=== PATIENT | female | born 1950 | race Caucasian/White ===

== ENCOUNTER → 2016-07-18 18:39 | Outpatient (CLI) | payer MEDICARE, OTHER | END | disposition home or self-care (01) | LOC: D.MAMMO 07-10 09:00 | DX: Z12.31 Encounter for screening mammogram for malignant neoplasm of breast (principal) ==

== ENCOUNTER 2017-04-04 05:08 | Day surgery (SDC) | payer MEDICARE, OTHER ==
[2017-04-03 13:39] LABS: BASOPHILS 0.7 % (0-2); EOSINOPHILS 4.7 % (0-7); HEMATOCRIT 37.6 % (36.0-48.0); HEMOGLOBIN 12.2 g/dL (12-16); IMMATURE GRANULOCYTES 0.4 % (0-5); LYMPHOCYTES 29.2 % (15-50); MCH 29.6 pg (26.0-34.0); MCHC 32.4 g/dL (31.0-37.0); MCV 91.3 fL (80.0-100.0); MEAN PLATELET VOLUME 10.4 fL (7.4-10.4); MONOCYTES 6.5 % (2-11); NEUTROPHILS 58.5 % (40-80); PLATELET COUNT 301 10x3/uL (130-400); RBC 4.12 10x6/uL (4.00-5.40); RDW 16.6 % (11.5-14.5); WBC 7.4 10x3/uL (4.8-10.8)
[2017-04-03 13:51] LABS: CALC OSMOLALITY 277 mosm/kg (275-300); CALCIUM 9.6 mg/dL (8.5-10.1); CHLORIDE - SERUM 99 mmol/L (98-107); CREATININE - SERUM 0.8 mg/dL (0.6-1.3); GLUCOSE 160 mg/dL (74-106); SODIUM 137 mmol/L (136-145); UREA NITROGEN 16 mg/dL (7-18); eGFR NON AFRICAN AMERICAN 76 mL/min (90-120)
[~2017-04-04] VITALS: Ht 170.2 cm; Wt 74.8 kg
[~2017-04-04 05:08] MED LIST: CHRONULAC30 ML PO; GLUCOPHAGE500 MG PO
[2017-04-04 06:30] VITALS: BP 135/78; Ht 170.2 cm; Wt 74.8 kg
[2017-04-04] MEDS ORDERED: REPREXAIN 10-21 EACH PO (08:50)
[2017-04-04 09:45] LABS: ALBUMIN 2.9 g/dL (3.4-5.0); BILIRUBIN - DIRECT 9.4 mg/dL (0.00-0.30); BILIRUBIN - INDIRECT 1.44 mg/dL (0.00-1.00); BILIRUBIN - TOTAL 10.84 mg/dL (0.2-1.3)
--- NOTE | 2017-04-04 13:34 | NUR ---
1200--PT VOIDS, IV DC'D. GINO RN 1210--DISCHARGE INSTRUCTIONS GIVEN, PT VERBALIZES UNDERSTANDING. PT OFF UNIT VIA WC. GINO CANAS
--- NOTE | 2017-04-08 12:19 | OP ---
PATIENT NAME: CIARAN MENDEZ MEDICAL RECORD: [id number] :52 LOCATION:D[facility] ADMISSION DATE: SURGEON: CHINTAN QUIÑONES MD DATE OF OPERATION: 04/04/2017 PREOPERATIVE DIAGNOSES: 1. Gallstones. 2. Steatosis of the liver. 3. Jaundice. 4. Diabetes mellitus. PREOPERATIVE DIAGNOSES: 1. Gallstones. 2. Steatosis of the liver. 3. Jaundice. 4. Diabetes mellitus. PROCEDURES: 1. Laparoscopic cholecystectomy. 2. Intraoperative cholangiogram with immediate fluoroscopic interpretation. 3. Johnnie-Cut Liver biopsy. SURGEON: Chintan Quiñones MD REPORT OF PROCEDURE: The patient's abdomen was prepped and draped in sterile fashion. A cutdown was made on the superior aspect of the umbilicus, 0 Vicryls were placed on the fascia bilaterally and the fascia was incised with 15-blade. I then bluntly entered the peritoneal cavity and placed a 12-mm Domingo port. Under direct visualization, a 5 mm trocar was placed in the epigastrium and 2 more 5 mm trocars were placed in the right subcostal region. The gallbladder was grasped and elevated. There were some acute inflammatory changes present. We were able to dissect down to the patient's cystic duct. This duct was mildly dilated. We were able to find the cystic artery and this was clipped proximally and distally and ligated in standard fashion. The cystic duct was clamped proximally and a small opening was made within it. We were able to place a cholangiocatheter into the cystic duct. At this point, fluoroscopy was brought in and we performed an intraoperative cholangiogram. There was brisk flow of the contrast through the cystic duct and out through the ampulla into the duodenum. We eventually got some backfilling of the common bile duct up into the hepatic ducts. These ducts were all markedly dilated, but there were no distinct strictures or masses noted. There were no free floating stones in the common bile duct to account for that dilatation. At this point, the cholangiocatheter was removed. The cystic duct was clipped twice distally and ligated in standard fashion. The gallbladder was then taken off the liver bed using electrocautery and placed into the right upper quadrant. Any bleeding from the liver bed was treated with electrocautery. At this point, we brought in a Johnnie-Cut biopsy tool. We went through the abdominal wall and got 5 cores of tissue from the right lobe of the liver. Any bleeding from the liver was then treated with electrocautery. At this point, the ports and insufflation were then removed and the gallbladder was taken out through the umbilicus. The umbilical fascia was closed with interrupted 0 Vicryls times 3. The wounds were irrigated out with normal saline and then infused with 10 mL of 0.25% Marcaine with epinephrine. The skin incisions were all closed with subcutaneous 5-0 Monocryl and dressed appropriately. OPERATIVE REPORT [id number] CIARAN MENDEZ COMPLICATIONS: None. CONDITION: Stable. ANESTHESIA: General endotracheal and local. BLOOD LOSS: Minimal. TRANSINT:[id number] Voice Confirmation ID: [id number] DOCUMENT ID: [id number] CHINTAN QUIÑONES MD at 1219 CC: DINESH OLMOS DO [id number] DICTATION DATE: 04/04/17 0856 DOWEL PIN MAN: 04/04/17 [id number] [facility] 04/04/17 [id number] [place] [address]
== END 2017-04-04 12:10 | disposition home or self-care (01) ==
LOC: D.OPS 05:08 → D.PAN 11:30 → D.OPS 12:10
PROVIDERS: Surgery
DX: K80.20 Calculus of gallbladder without cholecystitis without obstruction (principal); K76.0 Fatty (change of) liver, not elsewhere classified; R17 Unspecified jaundice; E11.9 Type 2 diabetes mellitus without complications; Z01.812 Encounter for preprocedural laboratory examination

== ENCOUNTER → 2017-05-02 08:08 | Outpatient (CLI) | payer MEDICARE, OTHER ==
[2017-04-04 06:30] VITALS: BMI 25.9
[~2017-05-02 08:08] MED LIST changes: +REPREXAIN 10-21 EACH PO
== END | disposition home or self-care (01) ==
LOC: D.MRI 08:08
DX: C25.9 Malignant neoplasm of pancreas, unspecified (principal)

== ENCOUNTER 2017-06-25 10:05 | Inpatient (IN) | payer MEDICARE, OTHER ==
[~2017-06-25] VITALS: Ht 170.2 cm; Wt 79.2 kg
--- NOTE | ~2017-06-25 | EC ---
PATIENT:CIARAN MENDEZ DATE OF SERVICE: 06/25/17 SEX: F MEDICAL RECORD: [id number] DATE OF : 52 LOCATION:[place] [address] AGE OF PATIENT: 67 ADMISSION DATE: 06/25/17 REFERRING PHYSICIAN: INTERPRETING PHYSICIAN: DINESH RUTLEDGE MD ECHOCARDIOGRAM REPORT ECHO CHARGES 4 ECHO COMPLETE CLINICAL DIAGNOSIS: TACHYCARDIA ECHOCARDIOGRAPHIC MEASUREMENTS (adult normal given) AC root (d.<3.7cm) 3.1 cm LV Septum d (<1.2 cm> 1.2 cm Valve Excursion 1.7 cm LV Septum (systole) 1.6 cm Left Atria (s.<4.0cm> 3.0 cm LVPW d(<1.2cm) 1.2 cm RV (d.<2.3cm) 3.2 cm LVPW (sytole) 1.7 cm LV diastole(<5.6CM) 3.4 cm MV E-F(>70mm/sec) cm LV systole 2.1 cm LVOT Diameter 1.7 cm MV exc.(>10mm) 1.6 cm Est.ejection fraction (50-75%) % Pericardial Effusion N DOPPLER: LVIT cm/sec A 79.0 cm/sec E 94.0 cm/sec LA cm/sec RVSP 17 mmHg LVOT 121 cm/sec AOP1/2T m/s Asc. Ao 143 cm/sec RVOT 85 cm/sec RA cm/sec PA 118 cm/sec AV Gradient Peak 8.19 mmHg AV Mean 4.29 mmHg AV Area 2.0 cm MV Gradient Peak 2.87 mmHg MV Mean 1.52 mmHg MV Area cm COMMENTS: Reference Librarian: Drake BECERRA Prison Keeper: 4 Dr. Rutledge TAPE# PACS DATE OF SERVICE: 06/27/2017 PROCEDURE: Transthoracic echocardiogram. FINDINGS: 1. Left ventricle is hyperdynamic. Ejection fraction 65%. The patient has evidence of mild hypertensive heart disease with left ventricular hypertrophy. Inflow characteristics; however, are normal. The patient has normal left atrium, normal aortic valve, normal mitral valve. 2. Normal tricuspid valve with normal right ventricular systolic pressures. ECHOCARDIOGRAM REPORT [id number] CIARAN MENDEZ Normal right atrium, normal right ventricle. CONCLUSION: Overall, this is a normal echocardiogram for age with the exception of mild left ventricular hypertrophy. TRANSINT:[id number] Voice Confirmation ID: [id number] DOCUMENT ID: [id number] DINESH RUTLEDGE MD at 1214 CC: [id number] DICTATION DATE: 06/27/172100 MANAGER PERIOPERATIVE: 06/28/17 0055 ADM IN [facility] [address] [place] [id number]
--- NOTE | ~2017-06-25 | OP ---
PATIENT NAME: CIARAN MENDEZ MEDICAL RECORD: [id number] :52 LOCATION:D.M2 D.2113 ADMISSION DATE:06/25/17 SURGEON: CHINTAN QUIÑONES MD DATE OF OPERATION: 06/30/2017 PREOPERATIVE DIAGNOSES: 1. Metastatic pancreatic cancer. 2. Partial duodenal obstruction. 3. Upper gastrointestinal bleed. 4. Anemia secondary to gastrointestinal hemorrhage. POSTOPERATIVE DIAGNOSES: 1. Metastatic pancreatic cancer. 2. Partial duodenal obstruction. 3. Upper gastrointestinal bleed. 4. Anemia secondary to gastrointestinal hemorrhage. PROCEDURE: 1. Left subclavian vein PowerPort placement. 2. Fluoroscopic interpretation. 3. Laparoscopic gastrojejunostomy. SURGEON: Chintan Quiñones MD REPORT OF PROCEDURE: The patient's abdomen and left chest were all prepped and draped in sterile fashion. A needle was used to cannulate the left subclavian vein and a guidewire was advanced with ease. Fluoro was used to note that the wire was in good position in the venous system. A subcutaneous pouch was made over the left superior lateral chest. The catheter was tunneled between this pouch and the wire exit site. The port was then sutured to the pectoral fascia using interrupted 2-0 Prolene. The catheter was cut with a beveled tip at 23-cm. The dilator trocar device was placed over the wire and the wire and dilator were removed. The catheter tip was noted to be in good position in the superior vena cava. The catheter aspirated nonpulsatile dark blood and flushed easily with heparinized saline. The subcutaneous tissues were reapproximated with interrupted 3-0 Vicryl and the skin was closed with running subcutaneous 5-0 Monocryl. This was dressed appropriately and then a Veress needle was inserted in the left upper quadrant of the abdomen. After insufflation was obtained, a 5-mm trocar was inserted in the midline just above the umbilicus. I could see the Veress needle and there was no sign of any injury to bowel or surrounding structures. The Veress needle was removed. A 12-mm trocar was placed in the left lateral abdomen and a 5-mm trocar was placed in the midepigastric region. We found the ligament of Treitz and followed the small bowel back about 20 cm. The small bowel was brought up to the stomach over the transverse colon and sutured into place with 0 Ti-Cron on each side on the body and antrum of the stomach. A small openings were made in the stomach and the small bowel and 60 green load Endo-HELEN stapler was used to make a long gastrojejunostomy. I inspected the opening and saw there was no sign of any active bleeding. We then closed the enterotomy and gastrotomy site using interrupted 0 Polydek times 3. The tissue appeared to be under no tension and there was no sign of any active bleeding. At this point, the ports and insufflation were then removed. There was a lot of bleeding from the supraumbilical port site, so the skin incision was opened up and I was able to oversew an area of bleeding from the muscle tissue. This discontinued any bleeding at that site. We then closed the fascia and the 12-mm trocar site OPERATIVE REPORT [id number] VANESSA,CIARAN SIERRA fascia using an interrupted 0 Vicryl. The subcutaneous tissues were then infused with a total of 10 mL of 0.25% Marcaine with epinephrine and then the skin incisions were closed with subcutaneous 5-0 Monocryl. COMPLICATIONS: None. CONDITION: Stable. ANESTHESIA: General endotracheal and local. BLOOD LOSS: Minimal. TRANSINT:[id number] Voice Confirmation ID: [id number] DOCUMENT ID: [id number] CHINTAN QUIÑONES MD at 1319 CC: LAURA CHAPMAN MD [id number] DICTATION DATE: 06/30/17 1429 RAILWAY STATION MANAGER: 06/30/17 1535 ADM IN [place] [id number] [place] [address]
[2017-06-25 11:07] LABS: LYMPHOCYTES 27.8 % (15-50); MCH 28.6 pg (26.0-34.0); MCHC 32.4 g/dL (31.0-37.0); MCV 88.2 fL (80.0-100.0); MEAN PLATELET VOLUME 8.3 fL (7.4-10.4); NEUTROPHILS 64.6 % (40-80); WBC 6.1 10x3/uL (4.8-10.8)
[2017-06-25 11:21] LABS: ALBUMIN 2.6 g/dL (3.4-5.0); ALKALINE PHOSPHATASE 482 U/L (46-116); ALT (SGPT) 64 U/L (10-68); CALC OSMOLALITY 283 mosm/kg (275-300); CALCIUM 8.1 mg/dL (8.5-10.1); CARBON DIOXIDE 28.5 mmol/L (21.0-32.0); CHLORIDE - SERUM 100 mmol/L (98-107); CREATININE - SERUM 0.8 mg/dL (0.6-1.3); GLUCOSE 252 mg/dL (74-106); POTASSIUM - SERUM 4.1 mmol/L (3.5-5.1); PROTEIN - SERUM 6.2 g/dL (6.4-8.2); SODIUM 135 mmol/L (136-145); UREA NITROGEN 26 mg/dL (7-18); eGFR NON AFRICAN AMERICAN 76 mL/min (90-120)
[2017-06-25 11:22] LABS: HEMATOCRIT 14.2 % (36.0-48.0); HEMOGLOBIN 4.6 g/dL (12-16); PLATELET COUNT 194 10x3/uL (130-400); RBC 1.61 10x6/uL (4.00-5.40)
[2017-06-25 12:16] LABS: INR 1.46 (0.85-1.17); PROTIME 17.3 SECONDS (11.6-15.0)
[2017-06-25 20:00] VITALS: BP 137/73
[2017-06-25 21:00] VITALS: BP 101/52
[2017-06-25 22:00] VITALS: BP 101/54
[2017-06-25 22:07] LABS: BASOPHILS 0.3 % (0-2); EOSINOPHILS 1.4 % (0-7); IMMATURE GRANULOCYTES 3.1 % (0-5); LYMPHOCYTES 33.1 % (15-50); MCH 29.5 pg (26.0-34.0); MCHC 34.7 g/dL (31.0-37.0); MONOCYTES 9.3 % (2-11); NEUTROPHILS 52.8 % (40-80); RBC 2.07 10x6/uL (4.00-5.40); RDW 14.4 % (11.5-14.5); WBC 7.1 10x3/uL (4.8-10.8)
[2017-06-25 22:09] LABS: HEMATOCRIT 17.6 % (36.0-48.0); HEMOGLOBIN 6.1 g/dL (12-16); PLATELET COUNT 91 10x3/uL (130-400)
[2017-06-25 22:35] LABS: ALBUMIN 2.4 g/dL (3.4-5.0); ALKALINE PHOSPHATASE 333 U/L (46-116); ALT (SGPT) 49 U/L (10-68); BILIRUBIN - TOTAL 1.25 mg/dL (0.2-1.3); CALC OSMOLALITY 276 mosm/kg (275-300); CARBON DIOXIDE 23.4 mmol/L (21.0-32.0); CHLORIDE - SERUM 102 mmol/L (98-107); CREATININE - SERUM 0.7 mg/dL (0.6-1.3); POTASSIUM - SERUM 3.9 mmol/L (3.5-5.1); PROTEIN - SERUM 5.5 g/dL (6.4-8.2); SODIUM 136 mmol/L (136-145); UREA NITROGEN 20 mg/dL (7-18); eGFR NON AFRICAN AMERICAN 89 mL/min (90-120)
[2017-06-25 22:40] LABS: GLUCOSE 139 mg/dL (74-106)
[2017-06-25 22:54] LABS: PLATELET ESTIMATE DECREASED
[2017-06-25 23:00] VITALS: BP 121/63
[2017-06-26] VITALS (24 sets, daily range): BP systolic 122–147; BP diastolic 63–81; Ht 170.2 cm; Wt 79.2 kg
[2017-06-26 05:11] LABS: BASOPHILS 0.5 % (0-2); EOSINOPHILS 1.7 % (0-7); LYMPHOCYTES 22.3 % (15-50); MCH 28.9 pg (26.0-34.0); MCHC 33.9 g/dL (31.0-37.0); MCV 85.2 fL (80.0-100.0); MEAN PLATELET VOLUME 9.1 fL (7.4-10.4); MONOCYTES 7.3 % (2-11); NEUTROPHILS 64.2 % (40-80); PLATELET COUNT 81 10x3/uL (130-400); RDW 15.4 % (11.5-14.5)
[2017-06-26 05:32] LABS: HEMATOCRIT 28.3 % (36.0-48.0); HEMOGLOBIN 9.6 g/dL (12-16); RBC 3.32 10x6/uL (4.00-5.40); WBC 8.9 10x3/uL (4.8-10.8)
[2017-06-26 05:36] LABS: INR 1.18 (0.85-1.17); PROTIME 14.6 SECONDS (11.6-15.0)
[2017-06-26 05:40] LABS: PRE-ALBUMIN 12.8 mg/dL (18.0-35.7)
[2017-06-26 08:33] LABS: APPEARANCE HAZY (CLEAR); COLOR YELLOW (YELLOW)
[2017-06-26 08:34] LABS: AMORPHOUS SEDIMENT >1+ /lpf (NONE SEEN); BACTERIA MODERATE /hpf (NONE SEEN); BILIRUBIN NEGATIVE (NEGATIVE); EPITHELIAL CELLS 0-5 /hpf (0-5); GLUCOSE NEGATIVE (NEGATIVE); KETONE NEGATIVE (NEGATIVE); MUCUS <1+ /lpf (NONE SEEN); NITRITE NEGATIVE (NEGATIVE); PROTEIN NEGATIVE (NEGATIVE); RED CELLS - URINE NONE SEEN /hpf (0-5); TALC POWDER CRYSTALS 0-5 /hpf (NONE SEEN); UROBILINOGEN NORMAL (NORMAL); WHITE CELLS - URINE 0-5 /hpf (0-5)
[2017-06-26 13:15] LABS: HEMATOCRIT 31.1 % (36.0-48.0); HEMOGLOBIN 10.5 g/dL (12-16)
[2017-06-26 16:57] LABS: HEMATOCRIT 31.5 % (36.0-48.0); HEMOGLOBIN 10.5 g/dL (12-16)
[2017-06-26 22:48] LABS: BASOPHILS 0.2 % (0-2); HEMATOCRIT 29.1 % (36.0-48.0); HEMOGLOBIN 9.5 g/dL (12-16); IMMATURE GRANULOCYTES 2.5 % (0-5); LYMPHOCYTES 17.1 % (15-50); MCH 28.5 pg (26.0-34.0); MCHC 32.6 g/dL (31.0-37.0); MCV 87.4 fL (80.0-100.0); MEAN PLATELET VOLUME 9.8 fL (7.4-10.4); MONOCYTES 1.2 % (2-11); PLATELET COUNT 95 10x3/uL (130-400); RBC 3.33 10x6/uL (4.00-5.40); RDW 15.9 % (11.5-14.5)
[2017-06-26 22:58] LABS: CALCIUM 7.6 mg/dL (8.5-10.1); CARBON DIOXIDE 22.1 mmol/L (21.0-32.0); CHLORIDE - SERUM 104 mmol/L (98-107); CREATININE - SERUM 0.7 mg/dL (0.6-1.3); POTASSIUM - SERUM 3.5 mmol/L (3.5-5.1); SODIUM 136 mmol/L (136-145); eGFR NON AFRICAN AMERICAN 89 mL/min (90-120)
[2017-06-26 23:02] LABS: CALC OSMOLALITY 281 mosm/kg (275-300); GLUCOSE 283 mg/dL (74-106); UREA NITROGEN 13 mg/dL (7-18)
[2017-06-26 23:05] LABS: ALBUMIN 2.4 g/dL (3.4-5.0); BILIRUBIN - DIRECT 0.76 mg/dL (0.00-0.30); BILIRUBIN - INDIRECT 0.94 mg/dL (0.00-1.00); BILIRUBIN - TOTAL 1.7 mg/dL (0.2-1.3); PROTEIN - SERUM 5.5 g/dL (6.4-8.2)
[2017-06-27] VITALS (19 sets, daily range): BP systolic 90–126; BP diastolic 40–68
[2017-06-27 00:31] LABS: HEMATOCRIT 30.2 % (36.0-48.0); HEMOGLOBIN 9.9 g/dL (12-16)
[2017-06-27 05:42] LABS: BASOPHILS 0.1 % (0-2); EOSINOPHILS 0.1 % (0-7); HEMATOCRIT 30.4 % (36.0-48.0); HEMOGLOBIN 9.9 g/dL (12-16); IMMATURE GRANULOCYTES 1.4 % (0-5); LYMPHOCYTES 4.6 % (15-50); MCH 28.7 pg (26.0-34.0); MCHC 32.6 g/dL (31.0-37.0); MCV 88.1 fL (80.0-100.0); MEAN PLATELET VOLUME 10.3 fL (7.4-10.4); MONOCYTES 5.5 % (2-11); NEUTROPHILS 88.3 % (40-80); PLATELET COUNT 88 10x3/uL (130-400); RBC 3.45 10x6/uL (4.00-5.40); RDW 17.4 % (11.5-14.5)
[2017-06-27 06:00] LABS: INR 1.35 (0.85-1.17); PROTIME 16.2 SECONDS (11.6-15.0)
[2017-06-27 06:23] LABS: ALBUMIN 2.3 g/dL (3.4-5.0); ANION GAP 15.8 mmol/L (8-16); BILIRUBIN - DIRECT 0.56 mg/dL (0.00-0.30); BILIRUBIN - TOTAL 1.1 mg/dL (0.2-1.3); CALCIUM 7.9 mg/dL (8.5-10.1); CARBON DIOXIDE 20.2 mmol/L (21.0-32.0); CREATININE - SERUM 1.3 mg/dL (0.6-1.3); PROTEIN - SERUM 5.5 g/dL (6.4-8.2)
[2017-06-27 11:59] LABS: HEMOGLOBIN 9.2 g/dL (12-16)
[2017-06-27 17:54] LABS: HEMATOCRIT 33.9 % (36.0-48.0); HEMOGLOBIN 11.2 g/dL (12-16)
[2017-06-27 23:37] LABS: HEMATOCRIT 30.1 % (36.0-48.0); HEMOGLOBIN 9.9 g/dL (12-16)
[2017-06-28] VITALS (24 sets, daily range): BP systolic 102–139; BP diastolic 55–78
[2017-06-28 06:11] LABS: HEMATOCRIT 31.3 % (36.0-48.0); HEMOGLOBIN 10.2 g/dL (12-16)
[2017-06-28 06:43] LABS: BASOPHILS 0.1 % (0-2); EOSINOPHILS 1.2 % (0-7); IMMATURE GRANULOCYTES 0.3 % (0-5); LYMPHOCYTES 7.7 % (15-50); MCH 29.1 pg (26.0-34.0); MCHC 32.8 g/dL (31.0-37.0); MCV 88.9 fL (80.0-100.0); MEAN PLATELET VOLUME 11.4 fL (7.4-10.4); MONOCYTES 3.9 % (2-11); NEUTROPHILS 86.8 % (40-80); PLATELET COUNT 76 10x3/uL (130-400); RDW 17.4 % (11.5-14.5); WBC 15.4 10x3/uL (4.8-10.8)
[2017-06-28 06:49] LABS: ALBUMIN 2.2 g/dL (3.4-5.0); ALKALINE PHOSPHATASE 341 U/L (46-116); ALT (SGPT) 48 U/L (10-68); BILIRUBIN - TOTAL 0.94 mg/dL (0.2-1.3); CALCIUM 8.4 mg/dL (8.5-10.1); CHLORIDE - SERUM 107 mmol/L (98-107); POTASSIUM - SERUM 3.3 mmol/L (3.5-5.1); PROTEIN - SERUM 5.2 g/dL (6.4-8.2); SODIUM 141 mmol/L (136-145); UREA NITROGEN 18 mg/dL (7-18)
[2017-06-28 06:51] LABS: CALC OSMOLALITY 285 mosm/kg (275-300); CREATININE - SERUM 0.8 mg/dL (0.6-1.3); GLUCOSE 154 mg/dL (74-106); eGFR NON AFRICAN AMERICAN 76 mL/min (90-120)
[2017-06-28 11:01] LABS: HEMATOCRIT 31.2 % (36.0-48.0); HEMOGLOBIN 10.2 g/dL (12-16)
[2017-06-28 16:53] LABS: HEMATOCRIT 33.9 % (36.0-48.0); HEMOGLOBIN 11.1 g/dL (12-16)
[2017-06-28 23:54] LABS: HEMATOCRIT 31.7 % (36.0-48.0); HEMOGLOBIN 10.2 g/dL (12-16)
[2017-06-29] VITALS (24 sets, daily range): BP systolic 115–137; BP diastolic 63–82
[2017-06-29 05:51] LABS: HEMATOCRIT 33.4 % (36.0-48.0); HEMOGLOBIN 10.7 g/dL (12-16)
[2017-06-29 07:26] LABS: ALBUMIN 2.2 g/dL (3.4-5.0); ALKALINE PHOSPHATASE 352 U/L (46-116); ALT (SGPT) 37 U/L (10-68); BILIRUBIN - TOTAL 1.12 mg/dL (0.2-1.3); CALC OSMOLALITY 275 mosm/kg (275-300); CALCIUM 8.4 mg/dL (8.5-10.1); CARBON DIOXIDE 24.5 mmol/L (21.0-32.0); CHLORIDE - SERUM 104 mmol/L (98-107); CREATININE - SERUM 0.8 mg/dL (0.6-1.3); GLUCOSE 136 mg/dL (74-106); POTASSIUM - SERUM 3.6 mmol/L (3.5-5.1); PROTEIN - SERUM 5.9 g/dL (6.4-8.2); SODIUM 136 mmol/L (136-145); UREA NITROGEN 17 mg/dL (7-18); eGFR NON AFRICAN AMERICAN 76 mL/min (90-120)
[2017-06-29 07:27] LABS: BASOPHILS 0.1 % (0-2); EOSINOPHILS 0.9 % (0-7); HEMATOCRIT 32.2 % (36.0-48.0); HEMOGLOBIN 10.5 g/dL (12-16); IMMATURE GRANULOCYTES 0.3 % (0-5); LYMPHOCYTES 7.1 % (15-50); MCH 29.2 pg (26.0-34.0); MCHC 32.6 g/dL (31.0-37.0); MCV 89.7 fL (80.0-100.0); MEAN PLATELET VOLUME 11.4 fL (7.4-10.4); MONOCYTES 4.8 % (2-11); NEUTROPHILS 86.8 % (40-80); RBC 3.59 10x6/uL (4.00-5.40); RDW 17.2 % (11.5-14.5); WBC 14.9 10x3/uL (4.8-10.8)
[2017-06-29 07:29] LABS: PLATELET COUNT 98 10x3/uL (130-400)
[2017-06-29 08:41] LABS: APPEARANCE CLEAR (CLEAR); BILIRUBIN NEGATIVE (NEGATIVE); COLOR DK YELLOW (YELLOW); GLUCOSE NEGATIVE (NEGATIVE); KETONE MODERATE mg/dL (NEGATIVE); NITRITE NEGATIVE (NEGATIVE); PROTEIN TRACE mg/dL (NEGATIVE); UROBILINOGEN NORMAL (NORMAL)
[2017-06-29 08:43] LABS: WHITE CELLS - URINE 25-50 /hpf (0-5)
[2017-06-29 08:44] LABS: BACTERIA FEW /hpf (NONE SEEN); EPITHELIAL CELLS 0-5 /hpf (0-5); MUCUS <1+ /lpf (NONE SEEN)
[2017-06-29 10:53] LABS: HEMATOCRIT 35.1 % (36.0-48.0); HEMOGLOBIN 11.4 g/dL (12-16)
[2017-06-29 17:44] LABS: HEMATOCRIT 32.9 % (36.0-48.0); HEMOGLOBIN 10.6 g/dL (12-16)
[2017-06-30] VITALS (25 sets, daily range): BP systolic 115–134; BP diastolic 63–82
[2017-06-30 04:50] LABS: BASOPHILS 0.2 % (0-2); EOSINOPHILS 1.5 % (0-7); HEMATOCRIT 31.7 % (36.0-48.0); HEMOGLOBIN 10.2 g/dL (12-16); IMMATURE GRANULOCYTES 0.4 % (0-5); LYMPHOCYTES 12.6 % (15-50); MCH 28.8 pg (26.0-34.0); MCHC 32.2 g/dL (31.0-37.0); MCV 89.5 fL (80.0-100.0); MEAN PLATELET VOLUME 11.4 fL (7.4-10.4); MONOCYTES 7.1 % (2-11); NEUTROPHILS 78.2 % (40-80); PLATELET COUNT 118 10x3/uL (130-400); RBC 3.54 10x6/uL (4.00-5.40); RDW 16.6 % (11.5-14.5)
[2017-06-30 07:06] LABS: ALBUMIN 2.2 g/dL (3.4-5.0); ALKALINE PHOSPHATASE 345 U/L (46-116); ALT (SGPT) 28 U/L (10-68); BILIRUBIN - TOTAL 1.01 mg/dL (0.2-1.3); CALC OSMOLALITY 270 mosm/kg (275-300); CALCIUM 8.2 mg/dL (8.5-10.1); CARBON DIOXIDE 24.6 mmol/L (21.0-32.0); CHLORIDE - SERUM 102 mmol/L (98-107); CREATININE - SERUM 0.7 mg/dL (0.6-1.3); GLUCOSE 117 mg/dL (74-106); POTASSIUM - SERUM 3.8 mmol/L (3.5-5.1); PROTEIN - SERUM 5.7 g/dL (6.4-8.2); SODIUM 134 mmol/L (136-145); UREA NITROGEN 17 mg/dL (7-18); eGFR NON AFRICAN AMERICAN 89 mL/min (90-120)
[2017-07-01] VITALS (19 sets, daily range): BP systolic 121–141; BP diastolic 72–90
[2017-07-01 05:30] LABS: BASOPHILS 0.1 % (0-2); EOSINOPHILS 0.1 % (0-7); HEMATOCRIT 32.5 % (36.0-48.0); HEMOGLOBIN 10.4 g/dL (12-16); IMMATURE GRANULOCYTES 0.6 % (0-5); LYMPHOCYTES 8.6 % (15-50); MCH 28.6 pg (26.0-34.0); MCV 89.3 fL (80.0-100.0); MEAN PLATELET VOLUME 11.4 fL (7.4-10.4); MONOCYTES 8.3 % (2-11); NEUTROPHILS 82.3 % (40-80); RBC 3.64 10x6/uL (4.00-5.40); RDW 16.4 % (11.5-14.5); WBC 14.3 10x3/uL (4.8-10.8)
[2017-07-01 05:38] LABS: CALCIUM 8.7 mg/dL (8.5-10.1); CHLORIDE - SERUM 101 mmol/L (98-107); CREATININE - SERUM 0.8 mg/dL (0.6-1.3); POTASSIUM - SERUM 4.1 mmol/L (3.5-5.1); SODIUM 134 mmol/L (136-145); eGFR NON AFRICAN AMERICAN 76 mL/min (90-120)
[2017-07-01 05:40] LABS: PLATELET COUNT 206 10x3/uL (130-400)
[2017-07-01 05:44] LABS: CALC OSMOLALITY 274 mosm/kg (275-300); GLUCOSE 174 mg/dL (74-106); UREA NITROGEN 22 mg/dL (7-18)
[2017-07-02 04:00] VITALS: BP 119/71
[2017-07-02 06:33] LABS: BASOPHILS 0.3 % (0-2); EOSINOPHILS 1.3 % (0-7); HEMATOCRIT 31.9 % (36.0-48.0); LYMPHOCYTES 15.2 % (15-50); MCH 28.3 pg (26.0-34.0); MCHC 31.3 g/dL (31.0-37.0); MCV 90.4 fL (80.0-100.0); MEAN PLATELET VOLUME 10.9 fL (7.4-10.4); MONOCYTES 10.4 % (2-11); NEUTROPHILS 71.8 % (40-80); PLATELET COUNT 211 10x3/uL (130-400); RBC 3.53 10x6/uL (4.00-5.40); RDW 16.7 % (11.5-14.5); WBC 13.9 10x3/uL (4.8-10.8)
[2017-07-02 08:00] VITALS: BP 123/69
[2017-07-02 12:34] VITALS: BP 133/77
[2017-07-02 17:14] VITALS: BP 125/78
[2017-07-02 19:00] VITALS: BP 122/73
[2017-07-03 04:00] VITALS: BP 117/73
[2017-07-03 06:13] LABS: BASOPHILS 0.5 % (0-2); EOSINOPHILS 2.2 % (0-7); HEMATOCRIT 32.7 % (36.0-48.0); IMMATURE GRANULOCYTES 1.5 % (0-5); LYMPHOCYTES 14.7 % (15-50); MCH 28.2 pg (26.0-34.0); MCHC 30.6 g/dL (31.0-37.0); MEAN PLATELET VOLUME 11.3 fL (7.4-10.4); MONOCYTES 11.5 % (2-11); NEUTROPHILS 69.6 % (40-80); PLATELET COUNT 204 10x3/uL (130-400); RBC 3.54 10x6/uL (4.00-5.40); RDW 16.8 % (11.5-14.5)
[2017-07-03 06:16] LABS: MCV 92.4 fL (80.0-100.0)
[2017-07-03 09:15] VITALS: BP 120/68
[2017-07-03 11:39] VITALS: BP 118/72
[2017-07-03 16:43] VITALS: BP 125/77
[2017-07-03 20:00] VITALS: BP 116/67
[2017-07-04] VITALS: BP 116/70
[2017-07-04 04:00] VITALS: BP 107/63
[2017-07-04 05:44] LABS: BASOPHILS 0.1 % (0-2); EOSINOPHILS 2.3 % (0-7); HEMATOCRIT 30.9 % (36.0-48.0); HEMOGLOBIN 9.9 g/dL (12-16); IMMATURE GRANULOCYTES 1.5 % (0-5); LYMPHOCYTES 16.9 % (15-50); MCH 28.5 pg (26.0-34.0); MONOCYTES 10.6 % (2-11); NEUTROPHILS 68.6 % (40-80); PLATELET COUNT 191 10x3/uL (130-400); RBC 3.47 10x6/uL (4.00-5.40); RDW 16.7 % (11.5-14.5)
[2017-07-04 07:30] VITALS: BP 118/76
[2017-07-04 13:03] VITALS: BP 102/59
[2017-07-04 15:43] VITALS: BP 116/70
[2017-07-05 01:18] VITALS: BP 117/71
[2017-07-05 05:41] LABS: BASOPHILS 0.1 % (0-2); EOSINOPHILS 2.5 % (0-7); HEMATOCRIT 30.8 % (36.0-48.0); HEMOGLOBIN 9.7 g/dL (12-16); LYMPHOCYTES 12.6 % (15-50); MCH 28.1 pg (26.0-34.0); MCHC 31.5 g/dL (31.0-37.0); MCV 89.3 fL (80.0-100.0); MEAN PLATELET VOLUME 11.3 fL (7.4-10.4); MONOCYTES 9.9 % (2-11); NEUTROPHILS 73.9 % (40-80); RBC 3.45 10x6/uL (4.00-5.40); RDW 16.9 % (11.5-14.5); WBC 14.6 10x3/uL (4.8-10.8)
[2017-07-05 05:45] LABS: PLATELET COUNT 103 10x3/uL (130-400)
[2017-07-05 06:37] VITALS: BP 117/68
[2017-07-05 08:44] VITALS: BP 105/60
[2017-07-05 11:49] VITALS: BP 102/65
[2017-07-05 17:00] VITALS: BP 93/64
[2017-07-05 19:00] VITALS: BP 109/67
[2017-07-06] VITALS: BP 104/63
[2017-07-06 04:00] VITALS: BP 106/60
[2017-07-06 05:11] LABS: BASOPHILS 0.2 % (0-2); EOSINOPHILS 2.4 % (0-7); HEMATOCRIT 30.5 % (36.0-48.0); HEMOGLOBIN 9.6 g/dL (12-16); IMMATURE GRANULOCYTES 1.5 % (0-5); LYMPHOCYTES 13.9 % (15-50); MCH 28.1 pg (26.0-34.0); MCHC 31.5 g/dL (31.0-37.0); MCV 89.2 fL (80.0-100.0); MEAN PLATELET VOLUME 11.3 fL (7.4-10.4); RBC 3.42 10x6/uL (4.00-5.40); RDW 16.9 % (11.5-14.5); WBC 15.5 10x3/uL (4.8-10.8)
[2017-07-06 05:13] LABS: PLATELET COUNT 132 10x3/uL (130-400)
[2017-07-06 08:26] VITALS: BP 105/66
[2017-07-06 11:37] VITALS: BP 111/65
[2017-07-06 16:53] VITALS: BP 105/63
[2017-07-06 22:30] VITALS: BP 122/72
[2017-07-07 00:30] VITALS: BP 131/66
[2017-07-07 04:30] VITALS: BP 108/73
[2017-07-07 06:15] LABS: BASOPHILS 0.3 % (0-2); EOSINOPHILS 2.6 % (0-7); HEMATOCRIT 30.3 % (36.0-48.0); HEMOGLOBIN 9.5 g/dL (12-16); IMMATURE GRANULOCYTES 1.2 % (0-5); LYMPHOCYTES 12.2 % (15-50); MCHC 31.4 g/dL (31.0-37.0); MCV 89.4 fL (80.0-100.0); MEAN PLATELET VOLUME 10.7 fL (7.4-10.4); MONOCYTES 11.1 % (2-11); NEUTROPHILS 72.6 % (40-80); PLATELET COUNT 171 10x3/uL (130-400); RBC 3.39 10x6/uL (4.00-5.40); RDW 16.8 % (11.5-14.5); WBC 14.1 10x3/uL (4.8-10.8)
[2017-07-07 08:13] VITALS: BP 122/69
[2017-07-07 12:24] VITALS: BP 107/66
[2017-07-07 15:45] VITALS: BP 106/61
[2017-07-07 20:29] VITALS: BP 118/69
[2017-07-08 01:15] VITALS: BP 109/68
[2017-07-08 05:21] VITALS: BP 105/64
[2017-07-08 05:45] LABS: BASOPHILS 0.2 % (0-2); EOSINOPHILS 2.1 % (0-7); HEMATOCRIT 30.7 % (36.0-48.0); HEMOGLOBIN 9.7 g/dL (12-16); IMMATURE GRANULOCYTES 1.4 % (0-5); LYMPHOCYTES 13.4 % (15-50); MCH 28.2 pg (26.0-34.0); MCHC 31.6 g/dL (31.0-37.0); MCV 89.2 fL (80.0-100.0); MONOCYTES 11.3 % (2-11); NEUTROPHILS 71.6 % (40-80); PLATELET COUNT 170 10x3/uL (130-400); RBC 3.44 10x6/uL (4.00-5.40); RDW 16.6 % (11.5-14.5); WBC 14.6 10x3/uL (4.8-10.8)
[2017-07-08 08:01] VITALS: BP 109/69
[2017-07-08 17:06] VITALS: BP 101/68
[2017-07-08 20:00] VITALS: BP 127/67
[2017-07-09] VITALS: BP 126/72
[2017-07-09 04:00] VITALS: BP 117/62
[2017-07-09 06:10] LABS: BASOPHILS 0.4 % (0-2); EOSINOPHILS 2.4 % (0-7); HEMATOCRIT 27.5 % (36.0-48.0); HEMOGLOBIN 8.6 g/dL (12-16); IMMATURE GRANULOCYTES 2.3 % (0-5); LYMPHOCYTES 10.3 % (15-50); MCH 27.8 pg (26.0-34.0); MCHC 31.3 g/dL (31.0-37.0); MEAN PLATELET VOLUME 9.9 fL (7.4-10.4); MONOCYTES 11.9 % (2-11); NEUTROPHILS 72.7 % (40-80); RBC 3.09 10x6/uL (4.00-5.40); RDW 16.6 % (11.5-14.5)
[2017-07-09 06:15] LABS: PLATELET COUNT 216 10x3/uL (130-400); WBC 9.4 10x3/uL (4.8-10.8)
[2017-07-09 06:27] LABS: ALBUMIN 2.4 g/dL (3.4-5.0); ANION GAP 12.1 mmol/L (8-16); BILIRUBIN - TOTAL 0.49 mg/dL (0.2-1.3); CALCIUM 8.5 mg/dL (8.5-10.1); CARBON DIOXIDE 26.4 mmol/L (21.0-32.0); CREATININE - SERUM 0.9 mg/dL (0.6-1.3); POTASSIUM - SERUM 3.5 mmol/L (3.5-5.1); PROTEIN - SERUM 6.1 g/dL (6.4-8.2)
[2017-07-09 07:55] VITALS: BP 91/59
[2017-07-09] MEDS ORDERED: REGLAN10 MG PO (11:11)
[2017-07-09] MEDS ORDERED: PROTONIX40 MG PO (11:12)
[2017-07-09] MEDS ORDERED: HUMULIN R100 U/ML SC (11:12)
[2017-07-09 11:27] VITALS: BP 102/64
[2017-07-09 15:12] VITALS: BP 102/58
[2017-08-22 11:46] LABS: ACID FAST CULTURE Negative (())
== END 2017-07-09 16:32 | DRG 854 ==
LOC: D.ER 10:05 → D.ICU 12:49 → D.M2 12:49 → D.EDHOLD 12:49 → D.CVICU 12:49 → D.M2 15:12 → D.ICU 20:30 → D.M2 21:12 → D.ICU 21:12 → D.CVICU 06-26 18:30 → D.M2 07-01 22:30
PROVIDERS: Emergency Medicine; Internal Medicine Gastroenterology; Legal Medicine; Surgery
PROC: 0DJ08ZZ Inspection of Upper Intestinal Tract, Via Natural or Artificial Opening Endoscopic (ICD-10-PCS; principal; 2017-06-25 20:30)
PROC: 0T9B70Z Drainage of Bladder with Drainage Device, Via Natural or Artificial Opening (ICD-10-PCS; 2017-06-26)
PROC: 0D160ZA Bypass Stomach to Jejunum, Open Approach (ICD-10-PCS; 2017-06-30)
PROC: 02HV33Z Insertion of Infusion Device into Superior Vena Cava, Percutaneous Approach (ICD-10-PCS; 2017-06-30)
DX: A41.50 Gram-negative sepsis, unspecified (principal); K92.2 Gastrointestinal hemorrhage, unspecified; C25.9 Malignant neoplasm of pancreas, unspecified; I82.403 Acute embolism and thrombosis of unspecified deep veins of lower extremity, bilateral; K29.70 Gastritis, unspecified, without bleeding; D64.9 Anemia, unspecified; E11.9 Type 2 diabetes mellitus without complications

== ENCOUNTER 2017-07-23 17:20 | Inpatient (IN) | payer OTHER ==
[~2017-07-23] VITALS: Ht 170.2 cm; Wt 82.8 kg
[~2017-07-23 17:20] MED LIST changes: +HUMULIN R100 U/ML SC; +PROTONIX40 MG PO; +REGLAN10 MG PO
[2017-07-23] MEDS ORDERED: TYLENOL650 MG (17:40)
[2017-07-23] MEDS ORDERED: ATIVAN2 MG/ML IV (17:41)
[2017-07-23 17:43] VITALS: BMI 28.6
[2017-07-23] MEDS ORDERED: MORPHINE S20 MG/5 ML PO (17:45)
[2017-07-23] MEDS ORDERED: ROXICODONE15 MG PO (17:49)
[2017-07-23] MEDS ORDERED: REPREXAIN 10-21 EACH PO (17:51)
[2017-07-23] MEDS ORDERED: ZOFRAN ODT4 MG/UDTAB PO (17:51)
[2017-07-23 20:00] VITALS: BP 119/77
[2017-07-24 08:34] VITALS: BP 99/65
[2017-07-24 08:38] VITALS: Ht 170.2 cm; Wt 82.8 kg
[2017-07-24 16:17] VITALS: BP 115/58
== END 2017-07-24 18:41 | DRG 951 ==
LOC: D.M2 17:20
DX: Z51.5 Encounter for palliative care (principal)